=== PATIENT | male | born 1985 | race African-American/Black ===

== ENCOUNTER 2025-02-17 22:23 | Emergency (ER) | payer SELFPAY ==
[2025-02-17 22:39] VITALS: BP 137/72; PULSE 99; RESP 16; TEMP 37.1; O2SAT 95; BMI 23.0
--- NOTE | 2025-02-17 22:43 | DI.RAD.S_ITS ---
PROCEDURE: XR CHEST 2V INDICATIONS: cough, congestion TECHNIQUE: 2 views of the chest were acquired. COMPARISON: None. FINDINGS: Surgical changes and devices: None. Lungs and pleura: Lungs are clear. No pleural effusions or pneumothorax. Peribronchial cuffing. Mediastinum: Mediastinal contours are normal. Heart size is normal. Bones and chest wall: No suspicious bony abnormalities. Soft tissues appear unremarkable. IMPRESSION: Peribronchial cuffing, typically indicating infectious or inflammatory bronchitis. Dictated by: Avery Nugent M.D. on 02/17/2025 at 23:35 Approved by: Avery Nugent M.D. on 02/17/2025 at 23:35
[2025-02-17 23:52] VITALS: PULSE 93; O2SAT 98
--- NOTE | 2025-02-17 23:52 | ED_ITS ---
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 No topical or oral/systemic antibiotics recent. No known allergies to any antibiotics. Related Data Previous Rx's ?Medication ?Instructions ?Recorded benzonatate 100 mg capsule 100 mg PO BID-TID PRN cough #10 02/18/25 caps doxycycline hyclate 100 mg tablet 100 mg PO BID #20 ta bs 02/18/25 prednisone 20 mg tablet 40 mg (2 x 20 mg) PO DAILY 5 days 02/18/25 #10 tabs Allergies Allergy/AdvReac Type Severity Reaction Status Date / Time No Known Drug Allergies Allergy Verified 02/17/25 22:39 Patient History Social History Smoking Status: Current every day smoker Smoking Status: Current every day smoker Exam Narrative Exam Narrative: GENERAL: Well-developed patient, in mild distress. HEAD: Atraumatic. Normocephalic. EYES: Pupils equal round and reactive. Extraocular motions intact. No scleral icterus. No injection or drainage. ENT: Nose without bleeding, purulent drainage. Throat without erythema, tonsillar hypertrophy or exudate. Airway patent. NECK: Trachea midline. Non tender CARDIOVASCULAR: Regular rate and rhythm without murmurs, gallops, or rubs. RESPIRATORY: Clear to auscultation. Breath sounds equal bilaterally. No wheezes, rales, or rhonchi. GASTROINTESTINAL: Abdomen soft, non-tender, nondistended. EXTREMITIES: No edema or joint tenderness. BACK: Nontender without deformity or crepitance. No flank tenderness. NEURO: AOx3. Motor functions grossly nonfocal. SKIN: No rash or erythema of visible areas. Right inguinal area with small area of induration, no expressible fluid or fluctuance, reported area of previous drainage, possible folliculitis favored over adenitis, could represent cyst. Initial Vital Signs Initial Vital Signs: Vital Signs Temperature 98.8 F 02/17/25 22:39 Pulse Rate 99 H 02/17/25 22:39 Respiratory Rate 16 02/17/25 22:39 Blood Pressure 137/72 02/17/25 22:39 Pulse Oximetry 95 02/17/25 22:39 Oxygen Delivery Method Room Air 02/17/25 22:39 Course Orders Ordered: ED Orders 02/17/25 22:43 Chest [XR chest 2V] Stat 02/17/25 22:46 Covid-19 + FLU A/B + RSV - PCR Stat Discontinued Medications Albuterol (Albuterol Hfa Prepack) 1 box MISC DIRECTED ONE Stop: 02/17/25 23:59 Last Admin: 02/18/25 00:14 Dose: 1 box Documented By: SANDRA Benzonatate (Benzonatate 100 Mg Capsule) 100 mg PO NOW ONE Stop: 02/18/25 00:17 Last Admin: 02/18/25 00:38 Dose: 100 mg Documented By: Doxycycline Hyclate (Doxycycline Hyclate 100 Mg Tablet) 100 mg PO NOW ONE Stop: 02/17/25 23:59 Last Admin: 02/18/25 00:11 Dose: 100 mg Documented By: USMAN Prednisone (Prednisone 20 Mg Tablet) 60 mg PO NOW ONE Stop: 02/18/25 00:05 Last Admin: 02/18/25 00:11 Dose: 60 mg Documented By: USMAN Vital Signs Vital signs: Vital Signs - 8 hr 02/17/25 22:39 02/17/25 23:52 02/18/25 00:41 Temperature 98.8 F Pulse Rate 99 H 93 H 85 Respiratory Rate 16 19 Blood Pressure 137/72 Pulse Oximetry 95 98 97 Oxygen Delivery Method Room Air Room Air Room Air MDM - URI/Sore Throat Lab Data Attestation: I reviewed the patient's lab results. Lab results narrative: COVID RSV influenza negative. Labs: Lab Results 02/17/25 Range/Units 22:46 SARS-CoV-2 (PCR) Negative (Negative) Influenza A (RT-PCR) Flu a negative (NEGATIVE) Influenza B (RT-PCR) Flu b negative (NEGATIVE) RSV (PCR) Negative (Negative) Imaging Data Chest x-ray: Radiologist's Impression: [address] [address] XRay Report Signed Patient: Jan Perez MR#: [id number] : 1985 Acct:[id number] Age/Sex: 39 / M Date of Service: 02/17/25 Loc: ED Accession Number: [id number] Procedure: XR chest 2V Ordering Provider: Demarcus Berman MD PROCEDURE: XR CHEST 2V INDICATIONS: cough, congestion TECHNIQUE: 2 views of the chest were acquired. COMPARISON: None. FINDINGS: Surgical changes and devices: None. Lungs and pleura: Lungs are clear. No pleural effusions or pneumothorax. Peribronchial cuffing. Mediastinum: Mediastinal contours are normal. Heart size is normal. Bones and chest wall: No suspicious bony abnormalities. Soft tissues appear unremarkable. IMPRESSION: Peribronchial cuffing, typically indicating infectious or inflammatory bronchitis. Dictated by: Avery Nugent M.D. on 02/17/2025 at 23:35 Approved by: Avery Nugent M.D. on 02/17/2025 at 23:35 MDM Narrative Medical decision making narrative: 39-year-old male with history of asthma, with 2 weeks' duration of cough and increasing shortness of breath, no oxygen requirement, speaking full sentences, also has right groin area hair follicle that was recently draining, with small nodule on examination present now. Chest x-ray negative for lobar infiltrate. COVID RSV influenza swab negative. Tessalon dispensed, prescription sent to pharmacy. Inhaler albuterol dispensed with instruction RT, with use of dispensed spacer, 2 puffs 4 times daily for this next week advised on discharge instructions, then as needed. History of asthma, we will give prednisone now, in 5 day pulse, prescription sent to his pharmacy. We will cover for possible MRSA skin infection based on history of draining follicular infection, which also could provide some atypical pulmonary pathogen coverage if relevant. Doxycycline 1st dose now, prescription course sent to his requested pharmacy. Visiting from [place], working at [employer], given phone number contact information for establish care visit local provider to see early next week. Return precautions discussed. Discharged home. Discharge Plan Departure Patient Disposition: Home Clinical Impression: Atypical pneumonia, Folliculitis, History of asthma Activity Restrictions/Additional Instructions: Two weeks' duration of cough, history of asthma, previous inhaler use, swab for COVID and influenza and RSV viruses negative, no lobar like pneumonia on chest x-ray. Increasing sinus symptoms. Right groin hair follicle area drainage recent, consider folliculitis. Trial of antibiotic doxycycline to help with skin infection, which can also help with atypical pneumonia lung pathogens if that is what is bothering you now. Oral prednisone steroid started, with prescription sent to your requested pharmacy. Trial of benzonatate/Tessalon Perles to help control cough symptoms. Inhaler dispensed with use of spacer, to take 2 puffs 4 times daily for this next week and then as needed. Recheck with your local regular doctor next week if symptoms not improving. Return to this/nearest emergency department for any change worsening symptoms or concerns prior. You can call for an appointment with a local provider at number, Prescriptions: New doxycycline hyclate 100 mg tablet 100 mg PO BID Qty: 20 0RF prednisone 20 mg tablet 40 mg PO DAILY 5 Days Qty: 10 0RF benzonatate 100 mg capsule 100 mg PO BID-TID PRN (Reason: cough) Qty: 10 0RF Stand Alone Forms: Patient Portal/API
[2025-02-17 23:58] LABS: Influenza A - CEPHEID Flu A NEGATIVE (NEGATIVE); Influenza B - CEPHEID Flu B NEGATIVE (NEGATIVE)
[2025-02-18 00:01] LABS: COVID-19 CEPHEID 4-PLEX PCR Negative (Negative)
[2025-02-18] MEDS: DOXYCYCLINE HYCLATE 100 MG TABLET PO (00:11)
[2025-02-18] MEDS: ALBUTEROL HFA PREPACK 1 BOX MISC (00:14)
[2025-02-18] MEDS: BENZONATATE 100 MG CAPSULE PO (00:38)
[2025-02-18 00:41] VITALS: PULSE 85; RESP 19; O2SAT 97
== END 2025-02-18 00:43 | disposition home or self-care (01) ==
PROVIDERS: Emergency Medicine; Emergency Provider Emergency Medicine
DX: J18.9 Pneumonia, unspecified organism (principal); L73.8 Other specified follicular disorders; R06.02 Shortness of breath; R09.89 Other specified symptoms and signs involving the circulatory and respiratory systems; Z87.09 Personal history of other diseases of the respiratory system
CPT/HCPCS: 71046; 87637; 99283; 99284